=== PATIENT | female | born 1960 ===

== ENCOUNTER 2024-12-13 13:49 | Outpatient (CLI) | payer MEDICARE, MEDICAID, SELFPAY ==
--- OUTSIDE RECORDS SUMMARY | 2024-12-13 13:52 | XMS_ITS | Clinical Summary ---
Author Organization [facility] Address [address] [place] [address] Care Team Providers Care Staffing Executive Name Role Phone Marlen Rodriguez MD Primary Care Provider [phone] Source Comments [facility],non-owned Affiliates and Associated Physician Practices is amultiple site organization consisting of ambulatory clinics and hospital sitesin [place], [place], [place] and [place]. This disclosure is being madepursuant to the Care Everywhere program and may not contain all information available regarding this patient. Last updated 17.[facility] Allergies Active Allergy Reactions Criticality Noted Date Comments Latex Rash Medium 09/28/2017 Sertraline Urticaria Medium 09/28/2017 Medications * Be aware that medications may not be up to date on this document. Alwaysverify current medications with the patient. No known medications Social History Tobacco Use Types Packs/Day Years Used Date Smoking Tobacco: Every Day Smokeless Tobacco: Never Comments No Sex and Gender Information Value Date Recorded Sex Assigned at Not on file Legal Sex Female 3:04 PM CDT Gender Identity Not on file Sexual Orientation Not on file Last Filed Vital Signs Vital Sign Reading Time Taken Comments Blood Pressure - - Pulse 71 09/28/2017 4:50 PM CDT Temperature 36.7 C (98.1 F) 09/28/2017 4:50 PM CDT Respiratory Rate 17 09/28/2017 4:50 PM CDT Oxygen Saturation 98% 09/28/2017 4:50 PM CDT Inhaled Oxygen Concentration - - Weight 60.1 kg (132 lb 8 oz) 09/28/2017 4:50 PM CDT Height 162.6 cm (5' 4) 09/28/2017 4:50 PM CDT Body Mass Index 22.74 09/28/2017 4:50 PM CDT Plan of Treatment Health Maintenance Due Date Last Done Comments BONE DENSITY TESTING 1958 COLOGUARD (AGES 45-75) - COL ON CA SCREENING 1958 COLON MONITORING 1958 COLONOSCOPY - COLON CA SCREENING 1958 CT COLONOGRAPHY - COLON CA SCREENING 1958 Colorectal Cancer Screening 1958 FIT - COLON CA SCREENING 1958 FLEX SIG - COLON CA SCREENING 1958 LIPID TESTING 1958 MAMMOGRAM 1958 HEPATITIS C SCREENING 06/05/1976 DTAP/TDAP/TD VACCINES (1 - Tdap) 1977 PNEUMOCOCCAL VACCINE 50+ (1 of 1 - PCV) 2008 ZOSTER VACCINE (1 of 2) 2008 DEPRESSION SCREENING 02/21/2024 COVID-19 VACCINE (1 - 2023-2 5 season) 2024 INFLUENZA VACCINE (#1) 2024 Respiratory Syncytial Virus (RSV) Vaccine Pt: or over 60 yrs (1 - 1-dose 75+ series) 2033 HEPATITIS B VACCINE Aged Out No longe r eligible based on patient's age to complete this topic HIB VACCINE Aged Out No longer eligi ble based on patient's age to complete this topic HPV VACCINE Aged Out No longer eligi ble based on patient's age to complete this topic MENINGOCOCCAL (Group B) VACC INE SHARED DECISION-MAKING Aged Out No longer eligibl e based on patient's age to complete this topic MENINGOCOCCAL GROUPS A/C/Y/W VACCINE Aged Out No longer eligible b ased on patient's age to complete this topic Insurance MEDICARE MEDICARE MEDICA[place] Care Teams Staffing Executive Relationship Specialty Start Date End Date Marlen Rodriguez MD [address] [place] [id number] PCP - General Internal Medicine 09/28/17
== END 2024-12-13 13:50 | disposition home or self-care (01) ==
LOC: ANHAUDIO 13:49
PROVIDERS: PCP Emergency Medicine; Visit Provider Emergency Medicine
DX: H93.13 Tinnitus, bilateral (principal); H90.6 Mixed conductive and sensorineural hearing loss, bilateral; H74.8X1 Other specified disorders of right middle ear and mastoid; H74.03 Tympanosclerosis, bilateral; H73.892 Other specified disorders of tympanic membrane, left ear
CPT/HCPCS: 92557; 92567